=== PATIENT | female | born 1960 | race Caucasian/White ===

== ENCOUNTER 2017-10-09 11:11 | Emergency (ER) | payer SELFPAY ==
[2017-10-09 11:17] VITALS: BP 159/87
[2017-10-09] MEDS ORDERED: DIPHTH,PERTUSS(ACELL),TET TOX 0.5 ML DISP.SYRIN. VAX IM ONE (12:00)
--- NOTE | 2017-10-09 12:37 | PHYS DOC ---
Past History Past Medical History: DVT Smoking: Non-smoker Adult General Chief Complaint Chief Complaint: LACERATION/AVULSION HPI HPI 57-year-old right-handed female patient states she cut her left hand while cutting boxes [facility] without other injuries or focal neuro deficit. Patient currently taking Coumadin for DVT and is not up-to-date with her tetanus immunization. Review of Systems Review of Systems Constitutional: Denies fever or chills [] Eyes: Denies change in visual acuity, redness, or eye pain [] HENT: Denies nasal congestion or sore throat [] Respiratory: Denies cough or shortness of breath [] Cardiovascular: No additional information not addressed in HPI [] GI: Denies abdominal pain, nausea, vomiting, bloody stools or diarrhea [] : Denies dysuria or hematuria [] Musculoskeletal: Denies back pain or joint pain [] Integument: Denies rash or skin lesions, reports laceration [] Neurologic: Denies headache, focal weakness or sensory changes [] Endocrine: Denies polyuria or polydipsia [] All other systems were reviewed and found to be within normal limits, except as documented in this note. Current Medications Current Medications Current Medications Medications (Trade) Dose Ordered Sig/Jeison Start Time Stop Time Status Last Admin Dose Admin Diphtheria/ Tetanus/Acell Pertussis (Boostrix) 0.5 ml ONCE ONCE 10/09/17 12:00 10/09/17 12:17 DC Allergies Allergies Allergies Coded Allergies Type Severity Reaction Last Updated Verified No Known Drug Allergies 10/09/17 No Physical Exam Physical Exam mildno acute distress, non-toxic appearance. [] HENT: Normocephalic, atraumatic Eyes: PERRLA, EOMI, conjunctiva normal, no discharge. [] Neck: Normal range of motion, no tenderness, supple, no stridor. [] Cardiovascular:Heart rate regular rhythm, no murmur [] Lungs & Thorax: Bilateral breath sounds clear to auscultation [] Extremities: 4 cm linear and superficial laceration in left hand in thenar area with moderate bleeding without neurovascular deficit, no cyanosis, no clubbing, ROM intact, no edema. [] Neurologic: Alert and oriented X 3, normal motor function, normal sensory function, no focal deficits noted. [] Psychologic: Affect normal, judgement normal, mood normal. [] EKG EKG [] Radiology/Procedures Radiology/Procedures [] Course & Med Decision Making Course & Med Decision Making Patient did not want to have INR checked in ER. I've spoken with the patient and/or caregivers. I've explained the patient's condition, diagnosis and treatment plan based on information available to me at this time. I've answered the patient's and/or caregivers questions and addressed any concerns. The patient and/or caregivers have a good understanding the patient's diagnosis, condition and treatment plan as can be expected at this point. Vital signs have been stabilized. The patient's condition is stable for discharge from the emergency department. The patient will pursue further outpatient evaluation with her primary care provider or other designated consulting physician as outlined in the discharge instructions. Patient and/or caregivers are agreeable to this plan of care and follow-up instructions have been explained in detail. The patient and/or caregivers have received these instructions in written format and expressed understanding of these discharge instructions. The patient and her caregivers are aware that if any significant change in condition or worsening of symptoms should prompt him to immediately return to this of the closest emergency department. If an emergent department is not readily available I would encourage him to call 911. Dragon Disclaimer Dragon Disclaimer This electronic medical record was generated, in whole or in part, using a voice recognition dictation system. Laceration Repair Lac Repair Indication: [Left hand laceration] Procedure: The patient was placed in the appropriate position and wound cleaning and bleeding was stopped and Dermabond and Steri-Strip was placed with good control of laceration and bleeding. Total repaired wound length: [4 cm Other Items: [OTHER ITEMS] The patient tolerated the procedure [well. Complications: [none Departure Departure: Impression: Primary Impression: Laceration of hand, left Additional Impression: Not up to date with tetanus toxoid immunization Disposition: HOME, SELF-CARE (At At 1235) Condition: IMPROVED Referrals: PCP,EMORY (PCP) Patient Instructions: Tissue Adhesive Wound Care Additional Instructions: Follow-up with your primary care physician in 3-5 days Return to ER if not getting better Problem Qualifiers KATIE FINNEGAN MD October 09, 2017 12:37
== END 2017-10-09 12:55 | disposition home or self-care (01) ==
LOC: ER 11:11
DX: S61.412A Laceration without foreign body of left hand, initial encounter (principal); Z86.718 Personal history of other venous thrombosis and embolism; W45.8XXA Other foreign body or object entering through skin, initial encounter; Y93.89 Activity, other specified; Y99.8 Other external cause status; Y92.89 Other specified places as the place of occurrence of the external cause
CPT/HCPCS: 12002; 90471; 90715; 99283-25